=== PATIENT | female | born 1965 | race American Indian/Alaskan Native ===

== ENCOUNTER 2017-03-01 11:30 | Outpatient (CLI) | payer MEDICARE, OTHER | END 2017-03-01 11:31 | disposition home or self-care (01) | LOC: LABHHL 11:30 | PROVIDERS: ATTEND Internal Medicine Hematology | DX: C22.9 Malignant neoplasm of liver, not specified as primary or secondary (principal) | CPT/HCPCS: 88271 ==

== ENCOUNTER 2017-08-19 14:03 | Emergency (ER) | payer MEDICARE ==
[2017-08-19] MEDS ORDERED: NORCO 5/325 PO ONE (19:38)
[2017-08-19] MEDS ORDERED: XYLOCAINE 2% INFILTRATI ONE (20:41)
[2017-08-19] MEDS ORDERED: TENIVAC IM ONE (20:42)
--- NOTE | 2017-08-19 20:49 | Cat Scan Report ---
FINAL REPORT PROCEDURE: CT HEAD/BRAIN WO CON TECHNIQUE: Computerized tomography of the head was performed without contrast material. HISTORY: fall head lac COMPARISON: No prior studies are available for comparison. FINDINGS: Skull and scalp: Scalp swelling left anterior frontal area and right posterior occipital region. Paranasal sinuses: Normal. 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 Cerebellum and brainstem: No evidence of hemorrhage, acute infarction or mass. Vasculature: Normal. 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 Periventricular microischemic change and ischemic changes and low attenuated areas in the right frontal deep white matter No prior CT head studies submitted at this time IMPRESSION: No acute intracranial pathology seen at this time
[2017-08-19] MEDS ORDERED: NACL 0.9% 500 ML IR ONE (22:20)
[2017-08-19] MEDS ORDERED: NACL 0.9% 1000 ML 1,000 ML ONE (22:38)
[2017-08-19] MEDS ORDERED: ANCEF ONE (22:46)
[2017-08-19] MEDS ORDERED: ZOFRAN ONE (22:53)
[2017-08-19] MEDS ORDERED: MORPHINE ONE (22:53)
[2017-08-19] MEDS ORDERED: ceFAZolin 2 GM in NACL 0.9% 100 ML IV ONE (22:54)
[2017-08-19] MEDS ORDERED: POLYSPORIN TP ONE (22:55)
[2017-08-19] MEDS ORDERED: NACL 0.9% 1000 ML 1,000 ML IV SCH (23:00)
--- NOTE | 2017-08-19 23:04 | Emergency Department Report ---
ED Fall HPI - General Chief Complaint: Wound/Laceration Stated Complaint: FALL/LACERATION Time Seen by Provider: 08/19/17 20:12 Source: patient Mode of arrival: Ambulatory - History of Present Illness Initial Comments: Pt presents to ED with c/o fall whilst getting out of the shawer at home. Pt has past hx of left sided CVA and this limits her mobility. Pt struck her head, left shoulder joint and left ankle and foot. Pt denies LOC. Pt sustained a laceration around her left eye brow. This measures about 4.0 cm Complaint: fall -: Sudden, This evening Fall Witnessed: no Place Fall Occurred: home Loss of Consciousness: none Location: head, other (left shoulder region, left ankle and left foot) Severity scale (0 -10): 10 Quality: sharp, aching Context: tripped/slipped Associated Symptoms: headache, weakness, unable to walk - Related Data Home Medications Medication Instructions Recorded Confirmed Last Taken Losartan Potassium 25 mg PO DAILY 01/14/14 08/19/17 03/04/15 Pregabalin [Lyrica] 100 mg PO BID 01/14/14 08/19/17 03/04/15 lamoTRIgine [lamoTRIgine ER] 300 mg PO BID 01/14/14 08/19/17 03/05/15 Morphine Sulfate [Morphine Sulfate 10 mg PO PRN PRN 04/06/14 08/19/17 1 Month Ago ER] Ondansetron [Zofran TAB] 8 mg PO Q8HR PRN 05/10/14 08/19/17 03/04/15 Previous Rx's Medication Instructions Recorded Last Taken Type ALPRAZolam [Xanax TAB] 0.25 mg PO Q8H PRN #10 tablet 09/04/15 Unknown Rx Aspirin [Aspirin BABY CHEW TAB] 81 mg PO QDAY tab.chew 09/04/15 Unknown Rx Sertraline [Zoloft] 50 mg PO QHS #30 tablet 09/04/15 Unknown Rx Cephalexin [Keflex] 1,000 mg PO Q12HR #40 cap 08/20/17 Unknown Rx Ibuprofen [Motrin 800 MG tab] 800 mg PO Q8HR PRN #30 tablet 08/20/17 Unknown Rx Mupirocin [Bactroban 2%] 1 applic TP TID #1 tube 08/20/17 Unknown Rx traMADol [Ultram] 50 mg PO Q6HR PRN #20 tablet 08/20/17 Unknown Rx Allergies Allergy/AdvReac Type Severity Reaction Status Date / Time No Known Allergies Allergy Verified 08/19/17 15:13 ED Review of Systems ROS: Stated complaint: FALL/LACERATION Other details as noted in HPI Comment: All other systems reviewed and negative Constitutional: see HPI, weakness. denies: diaphoresis, fever, malaise Eyes: eye pain (around left eye brow). denies: eye discharge, vision change ENT: denies: throat pain, dental pain, hearing loss Respiratory: denies: cough, orthopnea, shortness of breath, SOB with exertion, SOB at rest Cardiovascular: denies: chest pain, palpitations, dyspnea on exertion, syncope, paroxysmal nocturnal dyspnea Endocrine: no symptoms reported Gastrointestinal: denies: abdominal pain, nausea, vomiting, diarrhea, constipation, hematemesis Genitourinary: denies: dysuria, frequency, hematuria Musculoskeletal: joint swelling (left ankle, left shoulder) Skin: other (laceration left eye brow region) Neurological: headache, weakness ED Past Medical Hx - Past Medical History Previous Medical History?: Yes Hx Hypertension: Yes Hx Diabetes: Yes Hx GERD: Yes Hx Liver Disease: No Hx Renal Disease: No Hx of Cancer: Yes Hx Seizures: Yes (LAST SEIZURE 04/2013) Hx Kidney Stones: Yes Hx Asthma: No Hx COPD: No Additional medical history: 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 Stage 4 colon rectal cancer - Surgical History Past Surgical History?: Yes Hx Cholecystectomy: Yes (2008) Additional Surgical History: brain surgery 2008. lithotripsyport right chest - Social History Smoking Status: Never Smoker Substance Use Type: None - Medications Home Medications: Home Medications Medication Instructions Recorded Confirmed Last Taken Type Losartan Potassium 25 mg PO DAILY 01/14/14 08/19/17 03/04/15 History Pregabalin [Lyrica] 100 mg PO BID 01/14/14 08/19/17 03/04/15 History lamoTRIgine [lamoTRIgine ER] 300 mg PO BID 01/14/14 08/19/17 03/05/15 History Morphine Sulfate [Morphine Sulfate 10 mg PO PRN PRN 04/06/14 08/19/17 1 Month Ago History ER] Ondansetron [Zofran TAB] 8 mg PO Q8HR PRN 05/10/14 08/19/17 03/04/15 History ALPRAZolam [Xanax TAB] 0.25 mg PO Q8H PRN #10 tablet 09/04/15 08/19/17 Unknown Rx Aspirin [Aspirin BABY CHEW TAB] 81 mg PO QDAY tab.chew 09/04/15 08/19/17 Unknown Rx Sertraline [Zoloft] 50 mg PO QHS #30 tablet 09/04/15 08/19/17 Unknown Rx Cephalexin [Keflex] 1,000 mg PO Q12HR #40 cap 08/20/17 Unknown Rx Ibuprofen [Motrin 800 MG tab] 800 mg PO Q8HR PRN #30 tablet 08/20/17 Unknown Rx Mupirocin [Bactroban 2%] 1 applic TP TID #1 tube 08/20/17 Unknown Rx traMADol [Ultram] 50 mg PO Q6HR PRN #20 tablet 08/20/17 Unknown Rx ED Physical Exam - General Limitations: No Limitations General appearance: alert, in distress (moderate distress) - Head Head exam: Present: other (Laceration seen left eye brow region measures about 4.0 cm) - Eye Eye exam: Present: PERRL, EOMI, periorbital swelling (left eye region, laceration seen left brow region). Absent: scleral icterus, conjunctival injection, nystagmus - ENT ENT exam: Present: normal exam, normal orophraynx, mucous membranes moist - Neck Neck exam: Present: normal inspection, full ROM. Absent: tenderness, meningismus, lymphadenopathy, thyromegaly - Respiratory Respiratory exam: Present: normal lung sounds bilaterally. Absent: respiratory distress, wheezes, chest wall tenderness, accessory muscle use, decreased breath sounds, prolonged expiratory - Cardiovascular Cardiovascular Exam: Present: regular rate, normal rhythm, normal heart sounds - GI/Abdominal GI/Abdominal exam: Present: soft, distended (obese abdomen), normal bowel sounds. Absent: tenderness, organomegaly, mass - Rectal Rectal exam: Present: deferred ED Course Vital Signs 08/19/17 08/19/17 08/19/17 15:04 19:45 23:10 Temperature 98.3 F Pulse Rate 87 Respiratory 16 20 20 Rate Blood Pressure 119/86 Blood Pressure [Right] O2 Sat by Pulse 99 Oximetry 08/20/17 00:57 Temperature 98.7 F Pulse Rate 70 Respiratory 18 Rate Blood Pressure Blood Pressure 119/70 [Right] O2 Sat by Pulse 100 Oximetry - Laceration /Wound Repair Left Upper Eye Wound Location: face (left upper eye brow.Wound measures approximately 4.0 cm) Wound Length (cm): 4 Wound's Depth, Shape: linear Wound Explored: no foreign body removed Irrigated w/ Saline (ccs): 20 Anesthesia: 1% Lidocaine Volume Anesthetic (ccs): 5 Critical Care Time: No Critical care attestation.: If time is entered above; I have spent that time in minutes in the direct care of this critically ill patient, excluding procedure time. ED Disposition Clinical Impression: Laceration of eye region, Fall, Left ankle sprain, Contusion of left shoulder Disposition: TO HOME OR SELFCARE Is pt being admited?: No Does the pt Need Aspirin: No Condition: Stable Instructions: Ankle Sprain (ED), Suture Care (ED), Contusion in Adults (ED) Additional Instructions: Keep wound clean and dry. Twice daily wound dressing with Bactroban Follow up with your PCP or return back to ED to have sutures removed in 10 days Prescriptions: Cephalexin [Keflex] 1,000 mg PO Q12HR #40 cap Ibuprofen [Motrin 800 MG tab] 800 mg PO Q8HR PRN #30 tablet PRN Reason: Mild Pain Unrelieved By Apap Mupirocin [Bactroban 2%] 1 applic TP TID #1 tube traMADol [Ultram] 50 mg PO Q6HR PRN #20 tablet PRN Reason: Pain Referrals: PRIMARY CARE,MD [Primary Care Provider] - 3-5 Days Time of Disposition: 00:40
[2017-08-19] MEDS ORDERED: MORPHINE IV ONE (23:05)
[2017-08-19] MEDS ORDERED: ZOFRAN IV ONE (23:06)
[2017-08-20 00:59] VITALS: BP 119/70
--- NOTE | 2017-08-20 09:19 | XRay Report ---
LEFT ANKLE THREE VIEWS: 08/19/17 19:46 CLINICAL: Fall in bathtub. Pain and swelling. FINDINGS: The ankle mortise is intact. No fracture or dislocation. Marked medial greater than lateral soft tissue swelling . No soft tissue air or foreign body. Plantar calcaneal spur. IMPRESSION: Soft tissue injury and no fracture. Plantar calcaneal enthesopathy.
--- NOTE | 2017-08-20 09:20 | XRay Report ---
X-RAY LEFT FOOT THREE VIEWS: 08/19/17 19:38:00 CLINICAL: Fall and foot pain. FINDINGS: No fracture or dislocation. Marked soft tissue swelling. No soft tissue air or foreign body. Plantar calcaneal enthesophyte. IMPRESSION: Soft tissue injury. Plantar calcaneal enthesopathy.
== END 2017-08-20 00:59 | disposition home or self-care (01) ==
LOC: ED 14:03
DX: S01.112A Laceration without foreign body of left eyelid and periocular area, initial encounter (principal); S93.402A Sprain of unspecified ligament of left ankle, initial encounter; S40.012A Contusion of left shoulder, initial encounter; I10 Essential (primary) hypertension; E11.9 Type 2 diabetes mellitus without complications; K21.9 Gastro-esophageal reflux disease without esophagitis; Z79.82 Long term (current) use of aspirin; W18.30XA Fall on same level, unspecified, initial encounter; Y93.89 Activity, other specified; Y92.89 Other specified places as the place of occurrence of the external cause; Y99.8 Other external cause status
CPT/HCPCS: 12013; 70450; 73610; 73630; 90471; 90714; 96365; 96375; 99284; J0690; J2270; J2405; J7030